=== PATIENT | male | born 1930 | race Caucasian/White ===

== ENCOUNTER 2019-04-30 21:59 | Emergency (ER) | payer OTHER ==
[~2019-04-30] VITALS: Ht 182.9 cm; Wt 106.6 kg
[2019-04-30 22:46] LABS: Basophils # (auto) 0 uL; Basophils % (auto) 0.6 % (0.0-2.0); Eosinophils # (auto) 0.4 uL; Eosinophils % (auto) 4.4 % (0.0-7.0); Hematocrit 36.9 % (41.0-53.0); Hemoglobin 12.5 g/dL (13.5-17.5); Lymphocytes # (auto) 1.3 uL; Lymphocytes % (auto) 16.5 % (10.0-50.0); Mean Corpuscular Hemoglobin 30.2 pg (28.0-32.0); Mean Corpuscular Hgb Conc. 33.7 g/dL (32.0-36.0); Mean Corpuscular Volume 89.5 fL (80.0-100.0); Monocytes # (auto) 0.7 uL; Monocytes % (auto) 9.1 % (0.0-12.0); Neutrophils # (auto) 5.6 uL; Neutrophils % (auto) 69.4 % (37.0-80.0); Nucleated Red Blood Cells % 0.1 %; Platelet Count (auto) 179 10^3/uL (140-450); Red Blood Cells 4.13 10^6/uL (4.5-5.90); Red Cell Distribution Width 19.7 % (11.8-14.3); White Blood Cell 8.1 10^3/uL (4.4-10.8)
[2019-04-30 23:04] LABS: Urine Amorphous Crystal MOD /hpf (None Seen); Urine Bacteria MOD /hpf (None Seen); Urine Blood 3+ /uL (Negative); Urine Mucus FEW (None Seen); Urine Specific Gravity 1.023 (1.001-1.035); Urine WBC 157 /hpf (0 - 3)
[2019-04-30 23:10] LABS: Albumin 3.7 g/dL (3.4-5.0); Calcium 9.2 mg/dL (8.5-10.1); Potassium 4.3 mmol/L (3.5-5.1)
[2019-04-30 23:11] LABS: BUN/Creatinine Ratio 22.4
[2019-04-30 23:20] LABS: Bilirubin, Total 0.6 mg/dL (0.2-1.0); Total Protein 6.8 g/dL (6.4-8.2)
[2019-05-01 01:26] VITALS: BP 114/63
== END 2019-05-01 02:54 | disposition home or self-care (01) ==
LOC: EDBD 21:59 → ER 22:04
DX: T83.091A Other mechanical complication of indwelling urethral catheter, initial encounter (principal); N39.0 Urinary tract infection, site not specified; E11.9 Type 2 diabetes mellitus without complications; Z95.1 Presence of aortocoronary bypass graft
CPT/HCPCS: 36415; 80053; 81001; 85025; 93005

== ENCOUNTER 2020-01-31 15:10 | Inpatient (IN) | payer OTHER ==
[~2020-01-31] VITALS: Ht 182.9 cm; Wt 109.8 kg
[2020-01-31] MEDS ORDERED: NORT10CA (15:59)
[2020-01-31] MEDS ORDERED: LOSA-39 (15:59)
[2020-01-31] MEDS ORDERED: TRAMADOL (15:59)
[2020-01-31] MEDS ORDERED: FUR20T PO (15:59)
[2020-01-31] MEDS ORDERED: GAB100C (15:59)
[2020-01-31] MEDS ORDERED: LACT10SO60 (15:59)
[2020-01-31] MEDS ORDERED: LEVO175T62 (15:59)
[2020-01-31] MEDS ORDERED: ROPI0.254 (15:59)
[2020-01-31] MEDS ORDERED: ALEN10TA22 (15:59)
[2020-01-31] MEDS ORDERED: IPRATROPIUM (15:59)
[2020-01-31] MEDS ORDERED: MET25T (15:59)
[2020-01-31 16:03] LABS: Basophils # (auto) 0 10 ^3/uL (0-0.2); Basophils % (auto) 0.3 % (0.0-2.0); Eosinophils # (auto) 0.1 10 ^3/uL (0-0.8); Eosinophils % (auto) 1.2 % (0.0-7.0); Hematocrit 36.4 % (41.0-53.0); Hemoglobin 11.9 g/dL (13.5-17.5); Lymphocytes # (auto) 1.1 10 ^3/uL (0.4-5.4); Lymphocytes % (auto) 13.1 % (10.0-50.0); Mean Corpuscular Hemoglobin 29.3 pg (28.0-32.0); Mean Corpuscular Hgb Conc. 32.6 g/dL (32.0-36.0); Mean Corpuscular Volume 89.8 fL (80.0-100.0); Monocytes # (auto) 0.6 10 ^3/uL (0-1.3); Monocytes % (auto) 7.2 % (0.0-12.0); Neutrophils # (auto) 6.5 10 ^3/uL (1.6-8.6); Neutrophils % (auto) 78.2 % (37.0-80.0); Nucleated Red Blood Cells % 0.1 %; Platelet Count (auto) 217 10^3/uL (140-450); Red Blood Cells 4.05 10^6/uL (4.5-5.90); White Blood Cell 8.3 10^3/uL (4.4-10.8)
[2020-01-31 16:08] LABS: Red Cell Distribution Width 22.7 % (11.8-14.3)
[2020-01-31 16:15] LABS: Urine Bacteria NONE SEEN /hpf (None Seen); Urine Blood 2+ /uL (Negative); Urine Mucus FEW (None Seen); Urine WBC 637 /hpf (0 - 3)
[2020-01-31 16:29] LABS: Albumin 3.1 g/dL (3.4-5.0); Calcium 8.6 mg/dL (8.5-10.1); Magnesium 3.1 mg/dL (1.6-2.6); Potassium 4.6 mmol/L (3.5-5.1)
[2020-01-31 16:30] LABS: INR 1.01 (0.9-1.15); Partial Thromboplastin Time 27.6 sec (23.64-32.05)
[2020-01-31 16:36] LABS: BUN/Creatinine Ratio 14.5; Bilirubin, Total 0.4 mg/dL (0.2-1.0); Total Protein 6.7 g/dL (6.4-8.2)
[2020-01-31] MEDS ORDERED: cefTRIAXone 1GM/50ML D5W 50 ML IV ONE (17:30)
[2020-01-31] MEDS ORDERED: ASPirin-EC 81 mg tab PO ONE (17:30)
[2020-01-31] MEDS ORDERED: ONDANSETRON HCL 4 MG/2 ML VIAL IV PRN (21:15)
[2020-01-31] MEDS ORDERED: PANTOPRAZOLE 40 MG/10 ML VIAL INJ IV ONE (21:15)
[2020-01-31] MEDS ORDERED: FUROSEMIDE 20 MG/2 ML VIAL IV ONE (21:15)
[2020-01-31] MEDS ORDERED: DEXTROSE (50%) 50ML SYRG IV PRN (21:15)
[2020-01-31] MEDS ORDERED: NITROGLYCERIN 0.4 MG SL TAB SL PRN (21:45)
[2020-01-31] MEDS ORDERED: MORPHINE SULF INJ 2 MG/ML SYRINGE 1ML IV PRN (21:45)
[2020-01-31 22:01] LABS: Hematocrit 34.6 % (41.0-53.0); Hemoglobin 11.3 g/dL (13.5-17.5)
[2020-01-31] MEDS: SODIUM CHLORIDE 0.9% 1,000 ML IV SCH (22:15)
[2020-01-31] MEDS: ATORVASTATIN 20 MG TAB PO SCH (22:16)
[2020-01-31] MEDS: METOPROLOL TARTRATE 25 MG TAB PO SCH (22:17)
[2020-02-01] VITALS (7 sets, daily range): BP systolic 103–129; BP diastolic 54–78
[2020-02-01] MEDS: InsuLIN REG 1unit/0.01ml Soln (100units/ml) SC SCH ×4 (00:15→18:00)
[2020-02-01] MEDS: ACCU-CHEK COMFORT CURVE STRIP VI SCH ×4 (00:16→18:06)
--- NOTE | 2020-02-01 01:00 | NUR ---
Telemetry admit from ER MONET [facility]ALLERO admitted to Telemetry unit after SBAR received. Patient oriented to Ivis Amos primary RN, unit, room, bed, and unit policies regarding patient care and visiting hours. Patient now on continuous telemetry monitoring, tele box # [id number] and telemetry reading on arrival to unit is SR in the 70s. Patient placed on bedside oxygen, weighed by bedscale and encouraged to call if they need something. All questions and concerns addressed, patient verbalized understanding.
--- NOTE | 2020-02-01 03:19 | NUR ---
Critical Troponin from lab read back. Trending down from 0.67 to 0.624. Will continue to monitor patient.
--- NOTE | 2020-02-01 03:20 | NUR ---
Patient states that he is a DNR and would like to be here, patient from [place]. Currently patient is full code until the patient has consulted with doctor.. Will endorse to day shift to consult with doctor.
--- NOTE | 2020-02-01 03:22 | NUR ---
Patient has ulcer to left heel and sacrum. Patient states that a [place] nurse will change it daily. Will take pictures and put in for a wound consult per protocol. Will continue to monitor patient.
[2020-02-01 06:15] LABS: Potassium 3.9 mmol/L (3.5-5.1)
[2020-02-01 06:26] LABS: Bilirubin, Total 0.6 mg/dL (0.2-1.0); Calcium 8.5 mg/dL (8.5-10.1); Total Protein 6.5 g/dL (6.4-8.2)
[2020-02-01] MEDS: LEVOTHYROXINE SODIUM 50 MCG TAB PO SCH (06:47)
[2020-02-01 07:10] LABS: Basophils # (auto) 0 10 ^3/uL (0-0.2); Basophils % (auto) 0.5 % (0.0-2.0); Eosinophils # (auto) 0.2 10 ^3/uL (0-0.8); Eosinophils % (auto) 2.8 % (0.0-7.0); Hemoglobin 11.4 g/dL (13.5-17.5); Lymphocytes # (auto) 1.2 10 ^3/uL (0.4-5.4); Lymphocytes % (auto) 18.7 % (10.0-50.0); Mean Corpuscular Hemoglobin 28.6 pg (28.0-32.0); Mean Corpuscular Hgb Conc. 32.4 g/dL (32.0-36.0); Monocytes # (auto) 0.6 10 ^3/uL (0-1.3); Monocytes % (auto) 9.3 % (0.0-12.0); Neutrophils # (auto) 4.3 10 ^3/uL (1.6-8.6); Neutrophils % (auto) 68.7 % (37.0-80.0); Nucleated Red Blood Cells % 0.1 %; Platelet Count (auto) 201 10^3/uL (140-450); Red Blood Cells 3.98 10^6/uL (4.5-5.90); Red Cell Distribution Width 22.7 % (11.8-14.3); White Blood Cell 6.2 10^3/uL (4.4-10.8)
[2020-02-01 08:54] LABS: Free T4 (Free Thyroxine) 1.1 ng/dL (0.89-1.76)
[2020-02-01 08:55] LABS: Free T3 1.85 pg/mL (2.3-4.2)
[2020-02-01] MEDS: ASPirin 81 mg TAB PO SCH (10:08)
[2020-02-01] MEDS: PANTOPRAZOLE 40 MG/10 ML VIAL INJ IV SCH (10:08)
[2020-02-01] MEDS: cefTRIAXone 1GM/50ML D5W 50 ML IV SCH (10:08)
[2020-02-01] MEDS: FUROSEMIDE 20 MG/2 ML VIAL IV SCH (10:08)
[2020-02-01] MEDS: METOPROLOL TARTRATE 25 MG TAB PO SCH ×2 (10:09→21:31)
--- NOTE | 2020-02-01 12:00 | NUR ---
WOUND CARE NOTE: IN TO SEE PATIENT PER WOUND CARE CONSULT REQUEST. PATIENT ADMITTED TO [facility] WITH DIAGNOSIS OF NSTEMI. HE HAS CURRENT AVE SCORE OF 13. PATIENT WAS NOTED UPON ADMIT TO HAVE WOUNDS. WOUND PHOTOS WERE TAKEN AT THAT TIME BY BEDSIDE NURSE FOR REFERENCE. PATIENT STATES THAT HE HAS HAD WOUND TO HIS LEFT HEEL FOR MORE THAN 4 YEARS, AND SACRAL WOUND FOR ABOUT THE SAME TIME. PATIENT RECEIVES HOME HEALTH BY HOME HEALTHCARE NURSES EVERY OTHER DAY. HE SEES AN OUTSIDE OVERNIGHT CAREGIVER ON REGULAR BASIS OUT PATIENT. 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 PATIENT STATES THAT HE SITS FOR LONG PERIODS OF TIME AT HOME IN RECLINER CHAIR. APPLIED MOISTURE BARRIER CREAM, OPTIFOAM GENTLE SACRAL DRESSING. 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 WOUND BED COVERED WITH SOFT YELLOW/BROWN ESCHAR. PERIWOUND IS BRIGHT RED/PINK. NO DRAINAGE/ODOR NOTED. PATIENT RECEIVES REGULAR DEBRIDMENT OF WOUND BY HIS OVERNIGHT CAREGIVER. APPLIED THERAHONEY, OPTIFOAM GENTLE DRESSING TO SITE. NEW WOUND PHOTOS TAKEN AT THIS TIME WITH MEASUREMENTS FOR REFERENCE. RECOMMEND: FREQUENT TURN SCHEDULE Q 2 HOURS, PRN CONDITION PERMITS, WITH PRESSURE REDISTRIBUTION USING PILLOWS/WEDGES, BID/PRN APPLICATION WITH MOISTURE BARRIER CREAM, OPTIFOAM GENTLE SACRAL DRESSING, PILAR FOAM BOOTS TO BILATERAL FEET/HEELS, SKIN/WOUND CARE PLAN, EOD/PRN DRESSING CHANGE TO LEFT HEEL WOUND, DIETARY CONSULT, CONTINUED MONITORING BY WOUND CARE TEAM. Addendum: 02/01/20 at 1626 by Sandhya Boyd RN Amended: Links added.
[2020-02-01] MEDS: SODIUM CHLORIDE 0.9% 1,000 ML IV SCH (14:05)
--- NOTE | 2020-02-01 14:34 | NUR ---
Est energy needs 9798-5722 kcal (14-18 kcal/kg BW 105.74kg) Est protein needs 81-89g (1-1.1g/kg IBW 80.9kg) Will reassess prn. Addendum: 02/01/20 at [address] Amended: Links added.
[2020-02-01] MEDS ORDERED: ACETAMINOPHEN 500 MG TAB PO PRN (19:00)
--- NOTE | 2020-02-01 19:00 | NUR ---
Opening Shift Note Assumed care of patient, awake and alert. Patient gets disoriented when waking from sleep, will continue to monitor occurrence. No S/S of distress/SOB or pain. Patient in the lowest possible position with bed rails up x2 and call light within reach. Instructed on POC and to call for assist PRN, will continue to monitor for changes Q1hr and PRN.
[2020-02-01] MEDS: ENOXAPARIN SOD 120 MG/0.8 ML SYRINGE SC SCH (21:41)
[2020-02-01] MEDS: ATORVASTATIN 20 MG TAB PO SCH (21:41)
--- NOTE | 2020-02-01 23:18 | NUR ---
Patient to go for left heart cath, patient to be NPO at midnight.
[2020-02-02] MEDS: ACCU-CHEK COMFORT CURVE STRIP VI SCH ×4 (00:11→17:14)
[2020-02-02 05:00] VITALS: BP 129/66
[2020-02-02] MEDS: InsuLIN REG 1unit/0.01ml Soln (100units/ml) SC SCH ×4 (06:00→17:15)
[2020-02-02] MEDS: LEVOTHYROXINE SODIUM 50 MCG TAB PO SCH (06:25)
[2020-02-02] MEDS: SODIUM CHLORIDE 0.9% 1,000 ML IV SCH ×2 (06:26→23:10)
[2020-02-02 06:49] LABS: Basophils # (auto) 0 10 ^3/uL (0-0.2); Basophils % (auto) 0.5 % (0.0-2.0); Eosinophils # (auto) 0.2 10 ^3/uL (0-0.8); Eosinophils % (auto) 5.1 % (0.0-7.0); Hemoglobin 11.6 g/dL (13.5-17.5); Lymphocytes # (auto) 0.8 10 ^3/uL (0.4-5.4); Lymphocytes % (auto) 16.8 % (10.0-50.0); Mean Corpuscular Hemoglobin 28.8 pg (28.0-32.0); Mean Corpuscular Hgb Conc. 33.1 g/dL (32.0-36.0); Mean Corpuscular Volume 86.9 fL (80.0-100.0); Monocytes # (auto) 0.4 10 ^3/uL (0-1.3); Neutrophils # (auto) 3.3 10 ^3/uL (1.6-8.6); Neutrophils % (auto) 69.6 % (37.0-80.0); Nucleated Red Blood Cells % 0.2 %; Platelet Count (auto) 207 10^3/uL (140-450); Red Blood Cells 4.03 10^6/uL (4.5-5.90); White Blood Cell 4.7 10^3/uL (4.4-10.8)
[2020-02-02 07:06] LABS: Red Cell Distribution Width 22.6 % (11.8-14.3)
[2020-02-02 07:07] LABS: INR 1.03 (0.9-1.15); Partial Thromboplastin Time 41.2 sec (23.64-32.05)
[2020-02-02 07:09] LABS: BUN/Creatinine Ratio 18.4; Calcium 8.8 mg/dL (8.5-10.1); Potassium 4.2 mmol/L (3.5-5.1)
--- NOTE | 2020-02-02 08:00 | NUR ---
Opening Shift Note Assumed care of patient, asleep but easily aroused. Patient is alert to person. Confused to place, time and situation. No S/S of distress/SOB or pain. Instructed on POC and to call for assist PRN, will continue to monitor for changes Q1hr and PRN. NPO maintained for Left Heart Cath.
[2020-02-02 09:00] VITALS: BP 126/69
[2020-02-02] MEDS: cefTRIAXone 1GM/50ML D5W 50 ML IV SCH (09:09)
[2020-02-02] MEDS: PANTOPRAZOLE 40 MG/10 ML VIAL INJ IV SCH (09:09)
[2020-02-02] MEDS: FUROSEMIDE 20 MG/2 ML VIAL IV SCH (09:10)
[2020-02-02] MEDS: ASPirin 81 mg TAB PO SCH (09:10)
[2020-02-02] MEDS: LISINOPRIL 10 MG TAB PO SCH (09:11)
[2020-02-02] MEDS: ENOXAPARIN SOD 120 MG/0.8 ML SYRINGE SC SCH ×2 (09:11→21:53)
[2020-02-02] MEDS: METOPROLOL TARTRATE 25 MG TAB PO SCH ×2 (09:11→21:52)
--- NOTE | 2020-02-02 10:00 | NUR ---
Off Unit Patient taken to [employer] [employer] for procedure. Telephone consent previously received from (Maday Mclean).
[2020-02-02] MEDS ORDERED: LIDOCAINE 2%HCL (LOCAL ANESTH.) INJ 20ML MDV ONE (12:07)
[2020-02-02] MEDS ORDERED: IOHEXOL 350 MG/ML 100ML IJ ONE (12:07)
[2020-02-02] MEDS ORDERED: HEPARIN SODIUM (PORCINE) 5000 UNITS/ML 1ML VIAL ONE (12:09)
[2020-02-02] MEDS ORDERED: VERAPAMIL 2.5MG/ML INJ 2ML VIAL IV ONE (12:09)
[2020-02-02] MEDS ORDERED: ANGIOMAX 250 MG VIAL IV ONE (12:09)
[2020-02-02] MEDS ORDERED: fentaNYL CITRATE 100 MCG/2 ML VL ONE (12:09)
[2020-02-02] MEDS ORDERED: MIDAZOLAM HCL 1MG/1ML-2 ML VIAL ONE (12:10)
[2020-02-02] MEDS ORDERED: SODIUM CHL 0.9% 0 ML ONE (12:10)
--- NOTE | 2020-02-02 14:30 | NUR ---
On Unit Patient returned to unit after having left heart cath done. Patient is awake but drowsy, Oxygen 3 L via nasal canula. Saturation 98%. Vasc Band to left wrist intact, will deflate as pro protocol. Bed alarm on for safety and call light placed within reach. Patient encouraged to call for assistance as needed.
[2020-02-02 15:04] VITALS: BP 147/80
[2020-02-02 17:00] VITALS: BP 137/64
--- NOTE | 2020-02-02 19:00 | NUR ---
Opening Shift Note Assumed care of patient. Patient asleep and needed to be aroused by tapping his chest and saying his name. Patient has previously stated that he does not want to be disturbed. Will continue to monitor patient and ensure patient safety. No S/S of distress/SOB or pain. Patient in the lowest possible position with bed rails up x2 and call light within reach. Instructed on POC and to call for assist PRN, will continue to monitor for changes Q1hr and PRN.
[2020-02-02 20:00] VITALS: BP 140/69
[2020-02-02] MEDS: ATORVASTATIN 20 MG TAB PO SCH (21:52)
[2020-02-02 22:00] VITALS: BP 140/69
[2020-02-03 05:00] VITALS: BP 130/69
[2020-02-03] MEDS: ACCU-CHEK COMFORT CURVE STRIP VI SCH ×2 (05:52)
[2020-02-03] MEDS: InsuLIN REG 1unit/0.01ml Soln (100units/ml) SC SCH ×2 (05:54)
[2020-02-03] MEDS: LEVOTHYROXINE SODIUM 50 MCG TAB PO SCH (06:06)
--- NOTE | 2020-02-03 07:45 | NUR ---
Dr. Jules Quinones in to see patient as hospitalist. Patient to be discharged. Per Dr. Quinones, discharge patient after 16:00. Will continue to monitor.
--- NOTE | 2020-02-03 08:47 | NUR ---
Spoke with patient's , Maday. She was informed of the discharge. She states her daughter has to come from [place] to help take patient home. Informed her that this is OK. Encouraged to call if she has any questions. Will continue to monitor.
[2020-02-03 09:00] VITALS: BP 137/69
[2020-02-03] MEDS: ENOXAPARIN SOD 120 MG/0.8 ML SYRINGE SC SCH (10:33)
[2020-02-03] MEDS: LISINOPRIL 10 MG TAB PO SCH (10:34)
[2020-02-03] MEDS: METOPROLOL TARTRATE 25 MG TAB PO SCH (10:34)
[2020-02-03] MEDS: ASPirin 81 mg TAB PO SCH (10:34)
[2020-02-03 13:37] VITALS: BP 123/76
--- NOTE | 2020-02-03 14:00 | NUR ---
Discharge wound photos taken.
--- NOTE | 2020-02-03 16:06 | NUR ---
Received call that urine culture is positive for MRSA. Dr. Jules Quinones informed. Dr. Quinones states he will review the results and contact the patient tomorrow.
--- NOTE | 2020-02-04 07:57 | NUR ---
Called pt as per Dr. Quinones's request to give the new prescription for Zyvox given for pt. Spoke to pt's Maday Mclean at [phone], pt's asked for prescription to be call in to [place] [facility] at [phone] after 0900, pt's [place] .
--- NOTE | 2020-02-04 09:12 | NUR ---
Called in pt's pharmacy, [facility] at [phone], to call in a new prescription given by Dr. Quinones Zlarryox 600mg 1 po BID #20. Called pt's Maday to informed her that the prescription has been called in.
== END 2020-02-03 16:30 | disposition home or self-care (01) | DRG 280 ==
LOC: ER 15:10 → EDBD 15:10 → TELE 15:11 → TELE-CENTR 02-01 01:25
PROVIDERS: ADMIT Nurse Practitioner; ATTEND Family Medicine
PROC: 4A023N7 Measurement of Cardiac Sampling and Pressure, Left Heart, Percutaneous Approach (ICD-10-PCS; principal; 2020-02-02)
PROC: B2111ZZ Fluoroscopy of Multiple Coronary Arteries using Low Osmolar Contrast (ICD-10-PCS; 2020-02-02)
PROC: B2151ZZ Fluoroscopy of Left Heart using Low Osmolar Contrast (ICD-10-PCS; 2020-02-02)
PROC: B2131ZZ Fluoroscopy of Multiple Coronary Artery Bypass Grafts using Low Osmolar Contrast (ICD-10-PCS; 2020-02-02)
DX: I21.4 Non-ST elevation (NSTEMI) myocardial infarction (principal); I50.43 Acute on chronic combined systolic (congestive) and diastolic (congestive) heart failure; J96.01 Acute respiratory failure with hypoxia; N39.0 Urinary tract infection, site not specified; I25.10 Atherosclerotic heart disease of native coronary artery without angina pectoris; D64.9 Anemia, unspecified; M19.90 Unspecified osteoarthritis, unspecified site; I11.0 Hypertensive heart disease with heart failure; E78.5 Hyperlipidemia, unspecified; E78.00 Pure hypercholesterolemia, unspecified; E03.9 Hypothyroidism, unspecified; K21.9 Gastro-esophageal reflux disease without esophagitis; E11.21 Type 2 diabetes mellitus with diabetic nephropathy; E66.9 Obesity, unspecified; E11.40 Type 2 diabetes mellitus with diabetic neuropathy, unspecified; Z79.899 Other long term (current) drug therapy; Z95.1 Presence of aortocoronary bypass graft; Z85.46 Personal history of malignant neoplasm of prostate; Z95.0 Presence of cardiac pacemaker; Z68.31 Body mass index [BMI] 31.0-31.9, adult
CPT/HCPCS: 36415; 71045; 74176; 80048; 80053; 81001; 82150; 82962; 83605; 83690; 83735; 83880; 84439; 84443; 84481; 84484; 85014; 85018; 85025; 85610; 85730; 86850; 86900; 86901; 87040; 87086; 87088; 87186; 93306; 93459; 96365; 96375; 99152; 99153; 99291; C9113; G0378; J0696; J1815; J2250

== ENCOUNTER 2020-02-07 11:11 | Emergency (ER) | payer OTHER ==
[~2020-02-07] VITALS: Ht 182.9 cm; Wt 108.9 kg
[~2020-02-07 11:11] MED LIST: ALEN10TA22; FUR20T PO; GAB100C; IPRATROPIUM; LACT10SO60; LEVO175T62; LOSA-39; MET25T; NORT10CA; ROPI0.254; TRAMADOL
[2020-02-07] MEDS ORDERED: SODIUM CHLORIDE 0.9% 1,000 ML IV ONE (11:18)
[2020-02-07 12:00] LABS: Basophils # (auto) 0 10 ^3/uL (0-0.2); Basophils % (auto) 0.5 % (0.0-2.0); Eosinophils # (auto) 0.2 10 ^3/uL (0-0.8); Eosinophils % (auto) 2.9 % (0.0-7.0); Hematocrit 34.7 % (41.0-53.0); Hemoglobin 11.3 g/dL (13.5-17.5); Lymphocytes # (auto) 1.2 10 ^3/uL (0.4-5.4); Lymphocytes % (auto) 17.3 % (10.0-50.0); Mean Corpuscular Hemoglobin 28.5 pg (28.0-32.0); Mean Corpuscular Hgb Conc. 32.4 g/dL (32.0-36.0); Mean Corpuscular Volume 87.7 fL (80.0-100.0); Monocytes # (auto) 0.4 10 ^3/uL (0-1.3); Monocytes % (auto) 6.3 % (0.0-12.0); Nucleated Red Blood Cells % 0.1 %; Platelet Count (auto) 278 10^3/uL (140-450); Red Blood Cells 3.96 10^6/uL (4.5-5.90); White Blood Cell 6.8 10^3/uL (4.4-10.8)
[2020-02-07 12:05] LABS: Red Cell Distribution Width 22.1 % (11.8-14.3)
[2020-02-07 12:17] LABS: Alanine Aminotransferase 12 U/L (16-61); Anion Gap 6 (5-15); Calcium 8.8 mg/dL (8.5-10.1); Carbon Dioxide 25 mmol/L (21-32); Chloride 110 mmol/L (98-107); Glucose 139 mg/dL (74-106); Lipase 70 U/L (73-393); Magnesium 2.8 mg/dL (1.6-2.6); Potassium 3.9 mmol/L (3.5-5.1); Sodium 141 mmol/L (136-145)
[2020-02-07 12:23] LABS: Alkaline Phosphatase 80 U/L (45-117); Aspartate Aminotransferase 10 U/L (15-37); Bilirubin, Total 0.4 mg/dL (0.2-1.0); GFR African American 94 mL/min; GFR Non-African American 78 mL/min; Total Protein 6.7 g/dL (6.4-8.2)
[2020-02-07 12:42] LABS: Urine Bacteria FEW /hpf (None Seen); Urine Blood 2+ /uL (Negative); Urine Mucus FEW (None Seen); Urine Specific Gravity 1.021 (1.001-1.035); Urine WBC 1327 /hpf (0 - 3); Urine WBC Clumps PRESENT /hpf (None Seen)
[2020-02-07] MEDS ORDERED: VANCOMYCIN 1GM/250ML 250 ML IV ONE (13:00)
[2020-02-07 13:15] LABS: BUN/Creatinine Ratio 21.6; Blood Urea Nitrogen 21 mg/dL (7-18)
[2020-02-07 14:45] VITALS: BP 109/53
== END 2020-02-07 15:08 | disposition short-term general hospital (02) ==
LOC: ER 11:11 → EDBD 11:11 → ER 15:08
DX: I71.4 Abdominal aortic aneurysm, without rupture (principal); E44.0 Moderate protein-calorie malnutrition; I25.10 Atherosclerotic heart disease of native coronary artery without angina pectoris; E03.9 Hypothyroidism, unspecified; K59.01 Slow transit constipation; N39.0 Urinary tract infection, site not specified; Z95.0 Presence of cardiac pacemaker; M19.90 Unspecified osteoarthritis, unspecified site; I13.0 Hypertensive heart and chronic kidney disease with heart failure and stage 1 through stage 4 chronic kidney disease, or unspecified chronic kidney disease; E11.22 Type 2 diabetes mellitus with diabetic chronic kidney disease; N18.9 Chronic kidney disease, unspecified; I50.9 Heart failure, unspecified; E78.5 Hyperlipidemia, unspecified; I25.2 Old myocardial infarction
CPT/HCPCS: 36415; 70450; 71045; 74176; 80053; 81001; 83690; 83735; 84443; 84484; 85025; 87086; 93005; 96365; 99285; J3370; J7030